=== PATIENT | female | born 1990 | race Caucasian/White ===

== ENCOUNTER 2024-05-19 21:21 | Emergency (ER) | payer OTHER ==
[2024-05-19 21:26] VITALS: TEMP 98.6; BMI 32.5
[2024-05-19 23:32] VITALS: BP 141/86; PULSE 63; RESP 18
== END 2024-05-19 23:34 | disposition home or self-care (01) ==
LOC: JERFT 21:21
PROC: 0XQPXZZ Repair Left Index Finger, External Approach (ICD-10-PCS; principal; 2024-05-19)
DX: S61.211A Laceration without foreign body of left index finger without damage to nail, initial encounter (principal); X58.XXXA Exposure to other specified factors, initial encounter
CPT/HCPCS: 99283-25